=== PATIENT | female | born 1995 | race Caucasian/White ===

== ENCOUNTER 2025-04-14 10:53 | Outpatient (AMB) | payer MEDICAID, SELFPAY ==
[2025-04-14 11:05] VITALS: BP 117/75; PULSE 76; RESP 18; TEMP 36.2; O2SAT 98; BMI 27.1
--- NOTE | 2025-04-14 11:05 | AMB.OBINITIA ---
Vital Signs 04/14/25 11:05 Height 1.63 m Height Method Stated Weight 71.894 kg Weight Measurement Method Standing Scale BMI 27.1 BP 117/75 Blood Pressure Source Automatic Cuff Blood Pressure Location Left Upper Arm Position Sitting Respiration 18 Pulse 76 Pulse Source Monitor Temp 97.2 F Temp Source Oral Pulse Oximetry (%) 98 Oxygen Delivery Method Room Air Allergies/Home Meds Allergies & Medications Allergies No Known Allergies Allergy (Verified 04/14/25 11:07) Medication Reconciliation No Known Home Medications 04/14/25 [History Confirmed 04/14/25] Intake Visit Data Collection New Patient or Established: New Patient (never been to [facility]) Reason for Visit:: OBI Seen by Clinical Staff ONLY (RN/MA): No Digital Photographer Required: No Do You Feel Safe at Home: Yes Authorities Contacted: N/A PCP or OBGYN visit in last 3 months: No Hx Now: Yes Are you currently on any form of Control: No Last menstrual period: 10/30/24 Pain Present Currently: No Pain Scale Used: Henderson-Salvador/Numerical Pain scale:: 0 Smoking Status Smoking Status: Never smoker Immunizations Flu Vaccine in the Last 12 Months: No Flu Vaccine Exclusion Criteria: No Exclusion Criteria Questionnaires Covid-19 Vaccine Questionnaire Has patient been vacinated for Covid-19 Have you been vacinated for Covid-19: No PHQ-9 PHQ-2 Over the last 2 weeks, how often have you been bothered by any of the following problems? 1. Little interest or pleasure in doing things: not at all 2. Feeling down, depressed, or hopeless: not at all Total score: 0 PHQ-9 3. Trouble falling or staying asleep, or sleeping too much: Not at all 4. Feeling tired or having little energy: Not at all 5. Poor appetite or overeating: Not at all 6. Feeling bad about yourself - or that you are a failure or have let yourself or your family down: Not at all 7. Trouble concentrating on things, such as reading the newspaper or watching television: Not at all 8. Moving or speaking so slowly that other people could have noticed? - Or the opposite - being so fidgety or restless that you have been moving around a lot more than usual: not at all 9. Thoughts that you would be better off or of hurting yourself in some way: Not at all Total score: 0 If you checked off any problems, how difficult have these problems made it for you to do your work, take care of things at home, or get along with other people?: not difficult at all Source: Developed by Drs. Joaquin Ventura, Nahomy Cortes, Samy Prather and colleagues, with an educational yadira from [employer]. Depression screen completed yes Social History Living Situation History Marital Status: Single Lives With: Family Housing: House Tobacco History Smoking Status: Never smoker Second Hand Smoke Exposure: No Alcohol History Alcohol Intake: Never Domestic Abuse History Do You Feel Safe at Home: Yes History of Present Illness HPI Narrative 30-year-old 1 para 0 for OBI. Patient's last. Was October 30, 2024. She has for dates she tracks them. That gives EDC August 03, 2025. Denies any bleeding or labor complaints. No second trimester discomforts. Both her and her partner are happy about the baby. Patient is taking her prenatals. Patient denies any existence of chronic medical illnesses. Denies social habits. Denies surgeries. OB Initial Visit Menstrual History Menstrual reliability: definite Flow: normal Menstrual regularity: regular Monthly: Yes Age at menarche: 11 On control pills at conception: No OB History : 1 Para: 0 Hx # Pregnancies: 0 Hx Total # of Abortions (Spontaneous & Elective): 0 # of Living Children: 0 Infection History & Risk Evaluation History of STDs: none HIV risk evaluation: low risk Hepatitis B risk evaluation: low risk Patient or partner has history of Genital Herpes: No Varicella/chicken pox status: immunized Genetic Screening & History Genetic Screening/Teratology Counseling - Includes patient, baby's father, or anyone in either family with: 1. Patient's age 35 years or older as of estimated date of delivery: No 2. Thalassemia (Romansh, Mongolian, Mediterranean, or Background); MCV less than 80: No 3. Neural Tube Defect (Meningomyelocele, Spina Bifida, or Anencephaly): No 4. Congenital Heart Defect: No 5. Down Syndrome: No 6. Chema-Sachs (Ashkenazi Gnosticist, Cajun, Burkinan Creola): No 7. Alex Disease (Ashkenazi Gnosticist): No 8. Familial Dysautonomia (Ashkenazi Gnosticist): No 9. Sickle Cell Disease or Trait (): No 10. Hemophilia or other blood disorders: No 11. Muscular Dystrophy: No 12. Cystic Fibrosis: No 13. Teresita's Chorea: No 14. Mental Retardation/Autism: No 15. Other inherited genetic or chromosomal disorder: No 16. Maternal Metabolic Disorder (EG,TYPE 1 Diabetes, PKU): No 17. Patient or baby's father had a child with defects not listed above: No 18. Recurrent loss or a stillbirth: No 19. Medications (including supplements, vitamins, herbs or otc drugs)/illicit/recreational drugs/alcohol since last menstrual period: No 20. Any other: No Infection History 1. Live with someone with TB or exposed to TB: No 2. Rash or viral illness since last menstrual period: No 3. Hepatitis B,C: No Other (see comments) Source: [employer] [place] [employer] Review of Systems Review of Systems Systems Reviewed: All systems reviewed, normal except as documented Exam General Limitations: no limitations General Appearance: alert, in no apparent distress, comfortable, cooperative, healthy appearing, well developed and well groomed Head Head exam: atraumatic, normocephalic and normal inspection ENT ENT exam: Present normal exam, normal oropharynx and mucous membranes moist Chest Chest inspection: Present normal inspection and symmetric chest wall rise Resp Respiratory exam: Present normal lung sounds bilaterally Card Cardiovascular exam: Present regular rate, normal rhythm and normal heart sounds Abdominal Abdominal exam: Present soft and normal bowel sounds Psych Psychiatric exam: Present normal affect and normal mood Office Procedures OBC Clinic LOC & Office Proc's Nursing/Assessment Patient Status: Initial/New Patient OB Clinic Nursing Assessment: Medication Reconciliation, Update PMH in EMR and Vital Signs OB Clinic Coordination of Care: Consent,records obtained, informed consent, Education Simp Pt/Fam, Lab and Imaging orders, Results/Orders obtained and Staff clarify orders Special Needs: Heart tones New Patient Charge New Patient Point Assignment: [id number] Established Patient Charge Established Patient Point Charge: EP Level 3 (80-115) Assessment & Plan Diagnosis / Problem List (1) Encounter for supervision of high risk in second trimester, antepartum: Status: Acute Plan Continue prenatals. OB panel, 1 hour, A1c and NIPT and carrier screens today. Schedule with [facility] for MFM referral. Discussed labor precautions. And return in 4 weeks for OB check
== END 2025-04-14 11:31 | disposition home or self-care (01) ==
LOC: HODSOBC 10:53
PROVIDERS: Supervising Provider Advanced Practice Midwife; Visit Provider Advanced Practice Midwife
DX: O09.92 Supervision of high risk pregnancy, unspecified, second trimester (principal); Z3A.00 Weeks of gestation of pregnancy not specified
CPT/HCPCS: 99213; G0463

== ENCOUNTER 2025-05-19 10:23 | Outpatient (AMB) | payer MEDICAID, SELFPAY ==
[2025-05-19 11:01] VITALS: BP 122/77; PULSE 70; RESP 14; TEMP 36.6; O2SAT 98; BMI 29.4
--- NOTE | 2025-05-19 11:01 | AMB.OBPNC ---
Vital Signs 05/19/25 11:01 Height 1.63 m Height Method Stated Weight 78.075 kg Weight Measurement Method Standing Scale BMI 29.4 BP 122/77 Blood Pressure Source Automatic Cuff Blood Pressure Location Left Upper Arm Position Sitting Respiration 14 Pulse 70 Pulse Source Monitor Temp 98 F Temp Source Oral Pulse Oximetry (%) 98 Oxygen Delivery Method Room Air Allergies/Home Meds Allergies & Medications Allergies No Known Allergies Allergy (Verified 05/19/25 11:02) Medication Reconciliation ferrous sulfate 325 mg (65 mg iron) tablet 325 mg PO BID #60 tabs 05/19/25 [Rx] Immunizations Immunizations Flu Vaccine in the Last 12 Months: No Flu Vaccine Exclusion Criteria: Refused by Patient Care OB Visit Log OB Flowsheet Initial Weight: Not Recorded Date <del>?</del> EGA Weight BP Alb Glu CTX Pres Fundal ht FHR Mov Dilation Station Effacement Hx Notes Visit Note 04/14/25 <del>?</del> 23w 5d 71.894 kg 117/75 absent unknown 23 145 active 30-year-old 1 para 0 for OBI. Last period October 30, 2024. This gives due date August 03, 2025. So patient is 24 weeks today. Denies any leaking, bleeding, contractions. And fetus is active Schedule [facility] at [facility]. Discussed labor precautions. Continue prenatals. Discussed diet and weight. OB panel, 1 hour and NIPT today 05/19/25 <del>?</del> 28w 5d 78.075 kg 122/77 absent unknown 28 145 active Fetus active. No complaints of labor. Maternal- medicine is still pending. Patient is definitely. Patient denies any leaking, bleeding, contractions RhoGAM IM today. Discussed labor precautions. Follow-up MFM appointment. Return in 4 weeks OB check IRA Calculator Estimated Delivery Date Method Current WG Current Estimate 08/06/25 LMP (Certain) 30w 1d Notes Visit Date: 05/19/25 Last Updated by: Leda Cuellar CNM OB panel: B-/ABS-. RHOGAM IM given 05/19/25, hbsag-,hiv-,hc-, GC/T-, 252NIPT-SMA-,CF-A1: 4.8, 1 hr gtt- Visit Date: 04/14/25 Last Updated by: Leda Ceullar CNM 30 yo . LMP: 10/30/24. EDCC: 08/03/25 Office Procedures OBC Clinic LOC & Office Proc's Nursing/Assessment Patient Status: Established Patient OB Clinic Nursing Assessment: Medication Reconciliation, Update PMH in EMR and Vital Signs OB Clinic Coordination of Care: Complex Care and Chronic Disease 1-5, Consent,records obtained, informed consent, Education Simp Pt/Fam, 1 Ins Authorization, Lab and Imaging orders, Results/Orders obtained and Staff clarify orders Special Needs: Heart tones Established Patient Charge Established Patient Point Assignment: 150 Established Patient Point Charge: EP Level 4 (120-155) Injection/Vaccine Admin Admin 1st Vaccine: Yes Office Meds Rhophylac 1,500 unit (300 mcg)/2 mL injection syringe Performing Provider: Leda Cuellar CNM Performing Location: [facility] Administered by: Chula Loyd MA on 05/19/25 12:15 Dose Route Admin Location Dispensed Lot Number Expiration Date Package [facility] [employer] 1,500 unit IM LEFT GLUTE 2 mL [id number] 12/29/26 [id number] [facility] Assessment & Plan Diagnosis / Problem List (1) Encounter for supervision of high risk in second trimester, antepartum: Status: Acute (2) Encounter for supervision of high risk in third trimester, antepartum: Status: Acute Plan discuss labs, Rhogam today, discuss ptl precaution, rtc 3 week obc, f/u on MFM appointment Additional Plan Follow Up: 4 Weeks (obc)
== END 2025-05-19 11:56 | disposition home or self-care (01) ==
LOC: HODSOBC 10:23
PROVIDERS: Supervising Provider Advanced Practice Midwife; Visit Provider Advanced Practice Midwife
DX: O09.893 Supervision of other high risk pregnancies, third trimester (principal); O26.893 Other specified pregnancy related conditions, third trimester; Z67.91 Unspecified blood type, Rh negative; Z3A.28 28 weeks gestation of pregnancy; Z28.21 Immunization not carried out because of patient refusal
CPT/HCPCS: 90471; 96372; 99214; J3490; Z1034; G0463; J2791